=== PATIENT | female | born 1985 | race African-American/Black ===

== ENCOUNTER 2024-09-16 09:44 | Outpatient (AMB) | payer OTHER, SELFPAY ==
--- NOTE | 2024-09-16 09:56 | MHC.PC.OV ---
Vital Signs 09/16/24 09:57 Height 5 ft 3.39 in Weight 204 lb 2 oz BMI 35.7 BP 130/76 Blood Pressure Location Lt brachial Position Sitting Pulse 70 Pulse Source Pulse Oximeter Temp 97.3 F Temp Source Temporal Artery Scan Pulse Oximetry (%) 98 Oxygen Delivery Method Room Air Intake Visit Reasons: establish care Intake Note: Patient is a new patient here to establish care for HTN, Headaches, Blurry vision, Acne. Transferring care from Dr Doyle Herman ([place], [place]) . Medical records have been requested and have not received. Requesting for hormonal blood work Bobbin Marker Required: No Recreational Vehicle Resort Manager: Present Accompanied by: Spouse Allergies No Known Allergies Allergy (Verified 09/16/24 10:16) Tobacco use date assessed: 09/16/24 Dental Screening Dental Screen Date: 09/16/24 Did you have a dental visit in the last 12 months?: No Did you have a dental problem in the last 6 months where you did not have access to dental care?: No Was dental information given to patient?: No HPI establish care HPI Details Previous PCP: Dr. Doyle Herman at [place], [place] Last visit: Last PE: 2 years ago Specialist: not sure OBGYN: will refer to obygyn Past medical history: Medications: candesartan 16/12 mg Family HX: Mother Headache Problem: Patient is a 39-year-old female who was presenting to establish care HTN: reports that her normal blood pressure was 100/60, reports that she used to take candesartan 16/12mg and is requesting for this medication to be prescribed for her She reports that if her systolic goes into the 130s, she gets a headache Reports that if she eats a lot of salt in her food, the blood pressure goes up in the 130s and she started getting headaches Patient is originally from [facility] and reports that the blood pressure medication was prescribed there Patient reports that when her blood pressure is in the 130s it also affects her left eye Reports that her left eye becomes blurry She reports that a while back she had this issue in [facility] where her blood pressure was in the 130s and her left eye was blurry and her left arm became numb Reports that she went to the doctor and was given blood pressure medication and her symptoms resolved Patient reports that she is wearing reading glasses and she has not gotten her eye checked in a while Patient also reports a history of acne. She reports that the acne started after she was started on control Reports she stopped taking the controlled due to this issue, but the acne did not resolved Given the history of headaches, left eye blurriness, left arm numbness. We will refer the patient to Ophthalmology, Neurology and also an OBGYN for regular screenings [facility] Medical History (Updated 09/16/24 @ 21:52 by GARIMA Bruno) Acne Visual blurriness Chronic left-sided headaches Hypertension Surgical History History of delivery Social History Housing: Apartment Alcohol intake: never Patient Tobacco Use Status: Never used Tobacco e-Cigarette/Vaping Use: Never Used Second Hand Smoke Exposure: No service: No Current occupational status: unemployed Cognitive needs: No Hearing needs: No Vision needs: Yes (Glasses) Questionnaire PHQ-9 Over the last 2 weeks, how often have you been bothered by any of the following problems? 1. Little interest or pleasure in doing things: not at all 2. Feeling down, depressed, or hopeless: not at all 3. Trouble falling or staying asleep, or sleeping too much: not at all 4. Feeling tired or having little energy: not at all 5. Poor appetite or overeating: not at all 6. Feeling bad about yourself - or that you are a failure or have let yourself or your family down: not at all 7. Trouble concentrating on things, such as reading the newspaper or watching television: not at all 8. Moving or speaking so slowly that other people could have noticed. Or the opposite - being so fidgety or restless that you have been moving around a lot more than usual: not at all 9. Thoughts that you would be better off or of hurting yourself in some way: not at all Total score: 0 Depression Screening Interpretation: Negative Depression Screening Done: Yes Source: Developed by Drs. Ethan Arias, Lisa Vaughan, Aurelio Frias and colleagues, with an educational marbin from [employer]. Thrive Questionnaire Date Thrive assessed: 09/09/24 I am a: Patient What is your living situation today?: I have a steady place to live Within the past 12 months, did the food you bought not last and you didn't have the money to get more?: Never true Within the past 12 months, did you worry whether your food would run out before you got money to buy more?: Never true Do you have trouble paying for medicines?: No Do you have trouble getting transportation to medical appointments?: No Do you have trouble paying your heating and electricity bill?: No Do you have trouble taking care of your child, family member or friend?: No Do you have trouble with day-to-day activities such as bathing, preparing meals, shopping, managing finances, etc.?: No Are you currently unemployed and looking for a job?: No Are you interested in more education?: Yes Please select the resources that you would like help with: None Currently or been in a relationship where the following occur: No concerns reported THRIVE Score: 0 AUDIT C Alcohol Use Questionnaire (AUDIT-C) 1. How often do you have a drink containing alcohol?: Never 3. How often do you have six or more drinks on one occasion?: Never Total Score: 0 LINO-7 AMB Questionnaire LINO-7 Date LINO - 7 assessed: 09/16/24 Feeling nervous, anxious, or on edge: 0 = Not at all Not being able to stop or control worryin = Not at all Worrying too much about different things: 0 = Not at all Trouble relaxin = Not at all Being so restless that it is hard to sit still: 0 = Not at all Becoming easily annoyed or irritable: 0 = Not at all Feeling afraid as if something awful might happen: 0 = Not at all Total LINO-7 score (0-4 normal; 5-9 mild; 10-14 moderate; 15-21 severe): 0 Source: Developed by Drs. Ethan Arias, Lisa Vaughan, Aurelio Frias and colleagues, with an educational marbin from [employer]. Physical exam (Primary Care) Vital Signs: Last Vital Signs Temp 97.3 F 09/16/24 09:57 Pulse 70 09/16/24 09:57 BP 130/76 09/16/24 09:57 Pulse Ox 98 09/16/24 09:57 Oxygen Delivery Method Room Air 09/16/24 09:57 BMI result Body Mass Index 35.7 Tobacco/Smoking Status: Tobacco use Status Tobacco use date assessed 09/16/24 09/16/24 10:03 Patient Tobacco Use Status Never used Tobacco 09/16/24 10:03 e-Cigarette/Vaping Use Never Used 09/16/24 10:03 PHQ-9: PHQ-9 Score PHQ-9: Total score 0 09/16/24 10:43 Depression Screening Interpretation: Negative Thrive Assessment: Date of Thrive Assessment Date Thrive assessed 09/09/24 09/16/24 10:03 Currently or been in a relationship where the following occur: No concerns reported Coding Level of Care Code New Pt Level 4 (30983) Diagnoses Visual blurriness H53.8 Hypertension, unspecified type I10 Hypertension type: unspecified Chronic left-sided headaches R51.9; G89.29 Acne, unspecified acne type L70.9 Acne type: unspecified acne Time Spent (min) 33 Assessment & Plan Assessment & Plan (1) Visual blurriness: Code(s): H53.8 - Other visual disturbances Category: Medical Plan: Patient reports left eye blurriness with blood pressure is in the 130s. Patient reports that her normal blood pressure is 100/60 and she can tell the difference whenever her blood pressure elevates. The patient is currently wearing reading glasses, but have not gotten her eyes checked in a while. Will refer the patient to ophthalmology (2) Hypertension: Code(s): I10 - Essential (primary) hypertension Category: Medical Qualifiers: Hypertension type: unspecified Qualified Code(s): I10 - Essential (primary) hypertension Plan: The patient reports a history of high blood pressure. Reports that 130s might be normal for other people is high for her. For instance, the patient stated that 130s systolic cause her to have headaches. 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 Will restart Candesartan-hydrochlorothiazid 16-12.5 daily (3) Chronic left-sided headaches: Code(s): R51.9 - Headache, unspecified; G89.29 - Other chronic pain Category: Medical Plan: The patient reports that her headaches are always on the left side. Reports that her headache is triggered by her blood pressure and resolves with taking her blood pressure medication (4) Acne: Code(s): L70.9 - Acne, unspecified Category: Medical Qualifiers: Acne type: unspecified acne Qualified Code(s): L70.9 - Acne, unspecified Plan: Reports getting acne after starting a control but did not resolve after stopping the control. Orders: Orders Complete Blood Count Auto Diff Today Z00.00 - Encounter for general adult medical examination without abnormal findings UA CC w/rflx Micro + Cult Today Z00.00 - Encounter for general adult medical examination without abnormal findings TSH reflex Free T4 Today Z00.00 - Encounter for general adult medical examination without abnormal findings Comprehensive [place]. Panel Fast Today Z00.00 - Encounter for general adult medical examination without abnormal findings Lipid Panel Today Z00.00 - Encounter for general adult medical examination without abnormal findings Glucose Fasting Today Z00.00 - Encounter for general adult medical examination without abnormal findings Vitamin D 25-OH Total Today Z00.00 - Encounter for general adult medical examination without abnormal findings Referrals TELECOMMUNICATIONS ENGINEER Referral Z12.4 - Encounter for screening for malignant neoplasm of cervix Neurology Referral G89.29 - Other chronic pain, H53.8 - Other visual disturbances, R51.9 - Headache, unspecified Ophthalmology Referral G89.29 - Other chronic pain, H53.8 - Other visual disturbances, I10 - Essential (primary) hypertension, R51.9 - Headache, unspecified Medications: New candesartan-hydrochlorothiazid 16-12.5 mg 1 tab PO DAILY 30 tabs 3RF
[2024-09-16 09:57] VITALS: BP 130/76; PULSE 70; TEMP 36.3; O2SAT 98; BMI 35.7
== END 2024-09-16 10:51 | disposition home or self-care (01) ==
DX: H53.8 Other visual disturbances (principal); I10 Essential (primary) hypertension; R51.9 Headache, unspecified; G89.29 Other chronic pain; L70.9 Acne, unspecified

== ENCOUNTER 2024-09-16 09:44 | Outpatient (REF) | payer OTHER, SELFPAY ==
[2024-09-16 11:14] LABS: MANUAL DIFF FLAG NO
[2024-09-16 11:33] LABS: Basophils Percent Auto 0.3 % (0-2); Eosinophils Percent Auto 0.3 % (0-4); Hematocrit 40.3 % (37.0-47.0); Hemoglobin 13.1 g/dl (12.0-16.0); Imm Gran Abs Auto 0.02 X10*3/uL (0.00-0.03); Imm Gran Pct Auto 0.3 % (0.0-0.4); Lymphocytes Absolute Auto 2.7 X10*3/uL (1.2-4.9); Lymphocytes Percent Auto 41.7 % (20-40); Mean Corpuscular HGB Conc 32.5 g/dl (31.0-35.0); Mean Corpuscular Hemoglobin 26.8 pg (27.0-33.0); Mean Corpuscular Volume 82.4 fL (80.0-98.0); Mean Platelet Volume 9.7 fL (9.4-12.3); Monocytes Absolute Auto 0.5 X10*3/uL (0.1-1.2); Monocytes Percent Auto 7.6 % (2-11); Neutrophils Absolute Auto 3.2 x10*3/uL (2.0-8.3); Neutrophils Percent Auto 49.8 % (45-73); Platelet Count 297 X10*3/uL (160-400); Red Blood Count 4.89 X10*6/uL (4.20-5.50); Red Cell Distribution Width 14.2 % (11.0-16.0); White Blood Count 6.4 X10*3/uL (4.8-10.8)
[2024-09-16 11:40] LABS: Appearance Urine Cloudy; Color Urine Yellow; Glucose Urine UA Negative (Negative); Leukocyte Esterase Urine Negative (Negative); Nitrite Urine Negative (Negative); Specific Gravity - Urine 1.015 (1.005-1.025); Urine Blood Negative (Negative); Urine Ketones Negative (Negative); Urine Protein Negative (Neg-Trace)
[2024-09-16 12:29] LABS: TSH reflex Free T4 0.79 uIU/mL (0.32-4.0); Vitamin D 25-OH Total 13.5 ng/mL (>30)
[2024-09-16 12:48] LABS: Anion Gap 11 (12-20)
[2024-09-16 12:53] LABS: Alanine Aminotransferase 25 U/L (0-31); Albumin Level 3.9 g/dL (3.5-5.0); Alkaline Phosphatase 77 U/L (39-117); Aspartate Amino Transferase 25 U/L (5-31); Bilirubin Total 0.7 mg/dL (0.0-1.0); Blood Urea Nitrogen 10 mg/dL (9-16); Calcium 9.2 mg/dL (8.4-10.2); Carbon Dioxide 26 mmol/L (22-29); Chloride 105 mmol/L (96-108); Cholesterol 159 mg/dL (<200); Estimated Glomerular Filt Rate > 60; Glucose Fasting 112 mg/dL (60-99); HDL Cholesterol 82 mg/dL (>40); LDL Cholesterol Calculated 61 mg/dL (<100); Potassium 3.5 mmol/L (3.3-5.1); Sodium 138 mmol/L (135-145); Total Protein 7.4 g/dL (6.5-8.0); Triglycerides 83 mg/dL (<150)
== END 2024-09-16 09:45 | disposition home or self-care (01) ==
LOC: HO.LAB 09:44
DX: Z00.00 Encounter for general adult medical examination without abnormal findings (principal); H53.8 Other visual disturbances; I10 Essential (primary) hypertension; G89.29 Other chronic pain; R51.9 Headache, unspecified; L70.9 Acne, unspecified
CPT/HCPCS: 36415; 80053; 80061; 81003; 82306; 84443; 85025; 96127